=== PATIENT | male | born 1985 | race Caucasian/White ===

== ENCOUNTER 2018-07-26 19:46 | Inpatient (IN) | payer OTHER ==
[~2018-07-26] VITALS: Ht 188 cm; Wt 86.0 kg
[2018-07-26 20:42] LABS: PROTHROMBIN TIME 10.4 SECONDS (9.0-12.0)
[2018-07-26 20:47] LABS: ALANINE AMINOTRANSFERASE 77 U/L (12-78); ALBUMIN 4.3 G/DL (3.4-5.0); ALBUMIN/GLOBULIN RATIO 1.2 (1.1-1.5); ALKALINE PHOSPHATASE 122 IU/L (46-116); ANION GAP 10 (8-16); ASPARTATE AMINO TRANSFERASE 28 U/L (10-37); BLOOD UREA NITROGEN 16 MG/DL (7-18); BUN/CREATININE RATIO 14.7 (5.4-32.0); CALCIUM 9.2 MG/DL (8.5-10.1); CHLORIDE 99 MMOL/L (99-107); CREATININE 1.09 MG/DL (0.60-1.10); GLUCOSE 129 MG/DL (70-104); POTASSIUM 3.3 MMOL/L (3.5-5.1); SODIUM 138 MMOL/L (135-145); TOTAL CARBON DIOXIDE 29.2 MMOL/L (24-32); eGFR 78 ML/MIN
[2018-07-26 20:56] LABS: HEMATOCRIT 47.4 % (42.0-52.0); HEMOGLOBIN 16.7 g/dl (14.0-17.9); MEAN CORPUSCULAR VOLUME 91.7 FL (78-98); RED BLOOD COUNT 5.17 X10'6 (4.70-6.10); WHITE BLOOD COUNT 14.5 X10'3 (4.5-11.0)
[2018-07-26 20:57] LABS: BASOPHILS # (AUTO) 0.1 X10'3 (0-0.2); BASOPHILS % (AUTO) 0.5 % (0-1); EOSINOPHILS % (AUTO) 0.1 % (0-6); LYMPHOCYTES # (AUTO) 0.7 X10'3 (1.1-4.8); LYMPHOCYTES % (AUTO) 4.9 % (21-51); MEAN CORPUSCULAR HEMOGLOBIN 32.3 PG (27.0-31.0); MEAN CORPUSCULAR HGB CONC 35.2 % (33.0-36.5); MEAN PLATELET VOLUME 8.9 FL (7.4-10.4); MONOCYTES # (AUTO) 0.9 X10'3 (0-0.9); NEUTROPHILS # (AUTO) 12.8 X10'3 (1.8-7.7); NEUTROPHILS % (AUTO) 88.5 % (42-75); PLATELET COUNT 214 X10'3 (140-440); RED CELL DISTRIBUTION WIDTH 11.3 % (11.5-14.5)
[2018-07-26 21:03] LABS: CLARITY,URINE SLIGHTLY CLOUDY (Clear); COLOR,URINE YELLOW (Yellow); GLUCOSE, URINE NEGATIVE (Neg); KETONES,URINE 15 mg/dl (Neg); LEUKOCYTE ESTERASE ,URINE NEGATIVE (Neg); NITRITES, URINE NEGATIVE (Neg); OCCULT BLOOD,URINE NEGATIVE (Neg); PROTEIN,URINE NEGATIVE (Neg); UROBILINOGEN,URINE 0.2 E.U/dL (0.2-1.0)
[2018-07-26 21:08] LABS: UA COLLECTION TYPE CLN CATCH MIDSTREAM
[2018-07-26 21:10] LABS: AMORPHOUS PHOSPHATES 3+; BACTERIA,URINE FEW /HPF (Neg); RBC,URINE 0-2 /HPF (0-2); SQUAMOUS EPITHELIAL CELL,UR FEW /LPF (FEW); WBC,URINE 0-4 /HPF (0-4)
[2018-07-26] MEDS ORDERED: ondansetron/PF 4mg/2ml inj IV ONE (21:20)
[2018-07-26] MEDS ORDERED: morphine 4 MG/ML inj SYRINge IV ONE ×2 (21:20→22:35)
[2018-07-26] MEDS ORDERED: normal saline 1000ml 1,000 ML IV ONE (21:20)
[2018-07-26] MEDS ORDERED: NO HOME MEDS (22:50)
[2018-07-27] VITALS (14 sets, daily range): BP systolic 103–134; BP diastolic 49–87
[2018-07-27] MEDS: piperacillin/tazo 3.375gm/50ml 50 ML IV SCH ×4 (00:08→12:00)
[2018-07-27] MEDS ORDERED: ondansetron/PF 4mg/2ml inj IV PRN ×2 (00:30→12:10)
[2018-07-27] MEDS: morphine 2 MG/ML inj. syringe IV PRN ×2 (00:47→13:57)
[2018-07-27] MEDS: potassium Cl 20mEq in NS 1,000 ML IV SCH ×2 (00:57→17:38)
[2018-07-27] MEDS ORDERED: piperacillin/tazo 3.375gm/50ml 50 ML IV SCH (02:00)
[2018-07-27] MEDS ORDERED: BUPIVAcaine/PF 2.5mg/ml (0.25%) 10ml vial ONE (10:46)
[2018-07-27] MEDS ORDERED: ringers solution, lacted 1,000 ML IV SCH (12:09)
[2018-07-27] MEDS ORDERED: hydrALAZINE 20mg/ml inj. IV PRN (12:10)
[2018-07-27] MEDS ORDERED: morphine 4 MG/ML inj SYRINge IV PRN ×2 (12:10)
[2018-07-27] MEDS ORDERED: labetalol 20mg/4ml (5mg/ml) syringe IV PRN (12:10)
[2018-07-27] MEDS ORDERED: meperidine/PF 25mg/ml syringe IV PRN ×2 (12:10)
[2018-07-27] MEDS ORDERED: midazolam 2 mg/2 ml injection ONE (12:14)
[2018-07-27] MEDS ORDERED: fentaNYL/PF 50MCG/1 ML 2ML syringe ONE (12:14)
[2018-07-27] MEDS ORDERED: dexamethasone sod phosphate 4mg/ml inj. ONE (12:17)
[2018-07-27] MEDS ORDERED: rocuronium 10mg/ml inj IV ONE (12:17)
[2018-07-27] MEDS ORDERED: LIDOcaine 2% (20mg/ml) 5ml vial ONE (12:17)
[2018-07-27] MEDS ORDERED: glycopyrrolate 0.2mg/ml inj ONE (12:17)
[2018-07-27] MEDS ORDERED: propofol inj 20 ML IV ONE (12:17)
[2018-07-27] MEDS ORDERED: neostigmine methylsulfate 1 MG/ML 10ml vial ONE (12:17)
[2018-07-27] MEDS ORDERED: sevoflurane 250ml liquid IH ONE (12:17)
[2018-07-27] MEDS ORDERED: ondansetron/PF 4mg/2ml inj ONE (12:18)
[2018-07-27] MEDS ORDERED: magnesium 4gm in 100ml NS 100 ML IV PRN (16:10)
[2018-07-27] MEDS ORDERED: magnesium Cl slow-release 64mg tablet PO PRN (16:10)
[2018-07-27] MEDS ORDERED: potassium Cl 20 mEq SR tablet PO PRN ×2 (16:10)
[2018-07-27] MEDS ORDERED: magnesium 1gm/100ml D5W IVPB 100 ML IV PRN (16:10)
[2018-07-27] MEDS ORDERED: potassium Cl 40MEQ/NS 500ml 500 ML IV PRN ×2 (16:10)
[2018-07-27] MEDS ORDERED: lactobacillus rhamnosus 10,000 MMU CELLS/CAPSULE PO SCH (20:00)
== END 2018-07-27 19:01 | disposition home or self-care (01) | DRG 343 ==
LOC: ER 19:47 → ORTHO 4S 07-27 00:26 → CMPBEDREQ 07-27 02:05
PROVIDERS: ADMIT Internal Medicine; ATTEND Family Medicine
PROC: 0DTJ4ZZ Resection of Appendix, Percutaneous Endoscopic Approach (ICD-10-PCS; principal; 2018-07-27 12:17)
DX: K35.80 Unspecified acute appendicitis (principal); E87.6 Hypokalemia; Z23 Encounter for immunization
CPT/HCPCS: 96361; 96374; 96375; 96376; 99285; Z7506; 36415; 74176; 80053; 81001; 83605; 85025; 85610; 87070; A7000; J1100; J2001; J2250; J2270; J2405; J2543; J2704; J2710; J3010; J3490; J7120